=== PATIENT | male | born 1965 ===

== ENCOUNTER 2021-05-08 18:54 | Inpatient (IN) | payer MEDICAID ==
--- NOTE | 2021-05-09 09:23 | Consultation ---
History of Present Illness - Reason for Consult Consult date: 05/09/20 Medical management - History of Present Illness 55-year-old male with history of substance abuse, bipolar disorder and HIV infection who presented to [facility] for suicidal ideation. At time of interview patient denies suicidal ideations. Medicine was consulted for medical evaluation. Past medical history significant for HIV infection. At current time patient does not follow with infectious disease nor does he take any ARVs. Vital signs and labs were reviewed. Review of systems negative. Past History Past Medical History: HIV/AIDS Past Surgical History: No surgical history Social history: other (Meth and marijuana use) Family history: no significant family history Medications and Allergies Allergies Allergy/AdvReac Type Severity Reaction Status Date / Time Penicillins AdvReac Unknown Verified 05/09/21 01:34 Home Medications Medication Instructions Recorded Confirmed Last Taken Type Melatonin [Melatonin 5MG TAB] 5 mg PO QHS PRN 30 Days #30 tablet 05/12/21 Unknown Rx QUEtiapine [SEROquel] 50 mg PO BID 30 Days #60 tablet 05/12/21 Unknown Rx Venlafaxine [Effexor 37.5mg tab] 37.5 mg PO BID 30 Days #60 tablet 05/12/21 Unknown Rx traZODone [Desyrel] 50 mg PO QHS 30 Days #30 tablet 05/12/21 Unknown Rx Review of Systems Constitutional: no weight loss, no weight gain, no fever, no chills, no sweats, no anorexia, no poor appetite Ears, nose, mouth and throat: no nasal congestion, no epistaxis, no bleeding gums, no odynophagia, no headache Cardiovascular: no chest pain, no orthopnea, no rapid/irregular heart beat, no syncope, no shortness of breath, no high blood pressure Respiratory: no cough, no dyspnea on exertion, no wheezing, no pain on inspiration Gastrointestinal: no abdominal pain, no nausea, no vomiting, no diarrhea, no hematemesis, no melena, no hematochezia, no heartburn Genitourinary Male: no dysuria, no urinary frequency, no urinary hesitancy Musculoskeletal: no arm numbness/tingling, no low back pain, no myalgias Integumentary: no deferred Neurological: no head injury, no seizures, no tremors, no memory loss, no change s in smell/taste Psychiatric: insomnia, hopelessness, no anxiety, no suicidal ideation Endocrine: no polyphagia, no polydipsia, no polyuria, no excessive sweating, no weight change, no fatigue Exam - Physical Exam Narrative exam: GENERAL: Emaciated appearing male. In no acute distress. HEENT: Normocephalic. Atraumatic. NECK: Supple. CHEST/LUNGS: CTAB on room air HEART/CARDIOVASCULAR: RRR. No murmur, rubs or gallops appreciated. ABDOMEN: +BS. NT/ND. SKIN: Tattoos noted diffusely. NEURO: No focal motor deficit. Follows all commands. MUSCULOSKELETAL: No joint effusion EXTREMITIES: No cyanosis, cLubbing or edema. PSYCH: Cooperative. Denies current SI/HI - Constitutional Vitals: Temp Pulse Resp BP Pulse Ox 98.4 F 83 16 92/66 98 05/08/21 12:50 05/08/21 12:50 05/08/21 12:50 05/08/21 12:50 05/08/21 12:50 Results - Labs CBC & Chem 7: 05/10/21 23:58 05/10/21 23:58 Assessment and Plan #HIV infection -Patient followed with infectious disease in the past -Currently not on any antiviral medications -Will need close infectious disease follow-up at discharge #Tobacco dependence #Tobacco counseling -Patient reports smoking half a pack per day -Counseled about tobacco cessation. Time +10minutes -will start nicotine patch while inpatient #Substance abuse -Patient reports use of marijuana and methamphetamine #Bipolar disorder #Suicidal ideation -Management per primary
--- NOTE | 2021-05-09 10:20 | History and Physical Report ---
GP History & Physical - History of Present Illness Date of admission: 05/08/21 Date of Examination: 05/09/21 Reason for Admission: Danger to self, Failure of Outpatient Treatment, Severe anxiety/depression History of Present Illness: The patient is a 55y/o male patient who was admitted to [facility] from [facility] with a plant to cut his throat or OD. During my evaluation of the patient he still endorses suicidal thoughts with one of the plans above. He says he is depressed. The patient verbalizes using methamphetamines. He says he lives in a detention. The patient says he has a history of bipolar and takes seroquel and effexor. He says he doesn't take them like he's supposed to. He denies hallucinations at present but states when he came in voices were telling him to hurt himself. PAST PSYCHIATRIC HISTORY: Diagnoses: Bipolar Suicide attempts or Self-harm behavior: Yes Prior psychiatric hospitalizations: Yes Substance Abuse history: Methamphetamines Previous psychiatric medications tried: effexor, seroquel Outpatient treatment: yes PAST MEDICAL HISTORY: unknown Family Psychiatric History: None reported or documented SOCIAL HISTORY Marital Status: Single Living Arrangements: detention Employment Status: Disabled Education: History of Abuse:denies Legal History: Denies REVIEW OF SYSTEMS Constitutional: Negative for weight loss ENT: Negative for stridor Respiratory: Negative for cough or hemoptysis All other systems reviewed and are negative MENTAL STATUS EXAMINATION General Appearance and Behavior: Age appropriate, good hygiene, wearing appropriate clothes. calm, cooperative Cooperation: Cooperative Psychomotor Behavior: Psychomotor normal Mood: Depression Affect and affective range: Congruent with stated mood Thought Process: Illogical Thought Content: SI Speech: Normal Suicidal Ideation: Yes Homicidal Ideation: Denies Hallucinations: Denies Delusions: None elicited Impulse Control: Limited Insight and Judgment: Limited insight and fair judgment Memory: Limited Attention: distracted Orientation: a/o x 3 Assessment (1) Bipolar Disorder (2) Methamphetamine Dependence Treatment Plan Patient admitted for inpatient psychiatric evaluation, medication adjustment and close monitoring The patient's behavior, mood, sleep and appetite will be closely monitored. Patient enrolled in individual and group therapeutic sessions and encouraged to attend. Patient provided with a safe and structured environment. Patient's physical health needs will be addressed by the Hospitalist. Hospitalist Consulted Labs including CBC, CMP, Lipid profile and Hemoglobin A1C levels ordered for baseline reference Social Assessment will be completed and the Missileman will work with patient and family to ensure a suitable and safe disposition Medication adjustment will be made as clinically indicated Restarted home medications Trazodone 5omg po daily Usual Wellness Sabianist/Preservation: - Start Melatonin 5 mg po QHS to promote circadian rhythm The patient agreed on the treatment plan, understood the risk, benefit, alternative treatment, potential consequence of no treatment, and gave informed consent. Estimated days: 7 Post hospital care: primary care provider, psychiatric provider Case staffed with Dr. Reynolds Legal Status: Voluntary Reaction to Hospitalization: Accepting Medications and Allergies Allergies Allergy/AdvReac Type Severity Reaction Status Date / Time Penicillins AdvReac Unknown Verified 05/09/21 01:34 Results - Results Labs/Vitals: Last Vital Signs Temp 98.4 F 05/08/21 12:50 Pulse 83 05/08/21 12:50 Resp 16 05/08/21 12:50 BP 92/66 05/08/21 12:50 Pulse Ox 98 05/08/21 12:50 Physical Examination - Constitutional Vitals: Vital Signs Temp Pulse Resp BP Pulse Ox 98.4 F 83 16 92/66 98 05/08/21 12:50 05/08/21 12:50 05/08/21 12:50 05/08/21 12:50 05/08/21 12:50 Temperature -Last 24 Hours Temperature 98.4 F Mental Status Exam - Vital signs Last Vital Signs Temp 98.4 F 05/08/21 12:50 Pulse 83 05/08/21 12:50 Resp 16 05/08/21 12:50 BP 92/66 05/08/21 12:50 Pulse Ox 98 05/08/21 12:50 Physician Certification - Certification Statement Physician Certification Statement: This is an acknowledgement statement that NYLA RAMIREZ is a 55 year old M who requires inpatient psychiatric admission for treatment which could reasonably be expected to improve the patient's condition for Estimated period of time patient will need to remain in the hospital: [ ] Plan for post-hospital care: [ ]
[2021-05-09] MEDS ORDERED: MELATONIN 5 MG TAB PO PRN (10:25)
[2021-05-09] MEDS: QUEtiapine 25 MG TAB PO SCH ×2 (14:39→21:22)
[2021-05-09] MEDS: VENLAFAXINE 25 MG TAB PO SCH (14:39)
[2021-05-09] MEDS: traZODone 50 MG TAB PO SCH (21:22)
[2021-05-10] MEDS: VENLAFAXINE 25 MG TAB PO SCH (09:12)
[2021-05-10] MEDS: QUEtiapine 25 MG TAB PO SCH ×2 (09:12→21:26)
--- NOTE | 2021-05-10 10:13 | Progress Note ---
Subjective Date of service: 05/10/21 Principal diagnosis: Bipolar Disorder Subjective Comment: The patient was seen today. He looks depressed and withdraws, but states he's doing "okay." He denies SI/HI. He also denies hallucinations, but he stated to staff that hallucinations come and go. Staff also documents that the patient has to be encouraged to eat. REVIEW OF SYSTEMS Constitutional: Negative for weight loss ENT: Negative for stridor Respiratory: Negative for cough or hemoptysis All other systems reviewed and are negative MENTAL STATUS EXAMINATION General Appearance and Behavior: Age appropriate, good hygiene, wearing appropriate clothes. calm, cooperative Cooperation: Cooperative Psychomotor Behavior: Psychomotor normal Mood: Depression Affect and affective range: Congruent with stated mood Thought Process: Illogical Thought Content: SI Speech: Normal Suicidal Ideation: Passive Homicidal Ideation: Denies Hallucinations: "on and off" Delusions: None elicited Impulse Control: Limited Insight and Judgment: Limited insight and fair judgment Memory: Limited Attention: distracted Orientation: a/o x 3 Assessment (1) Bipolar Disorder (2) Methamphetamine Dependence Treatment Plan Patient admitted for inpatient psychiatric evaluation, medication adjustment and close monitoring The patient's behavior, mood, sleep and appetite will be closely monitored. Patient enrolled in individual and group therapeutic sessions and encouraged to attend. Patient provided with a safe and structured environment. Patient's physical health needs will be addressed by the Hospitalist. Hospitalist Consulted Labs including CBC, CMP, Lipid profile and Hemoglobin A1C levels ordered for baseline reference Social Assessment will be completed and the Vamp Maker will work with patient and family to ensure a suitable and safe disposition Medication adjustment will be made as clinically indicated Increase Effexor 37.5mg po BID Usual Wellness Samaritan/Preservation: - Start Melatonin 5 mg po QHS to promote circadian rhythm The patient agreed on the treatment plan, understood the risk, benefit, alternative treatment, potential consequence of no treatment, and gave informed consent. Estimated days: 7 Post hospital care: primary care provider, psychiatric provider Case staffed with Dr. Reynolds Medications and Allergies Allergies Allergy/AdvReac Type Severity Reaction Status Date / Time Penicillins AdvReac Unknown Verified 05/09/21 01:34 Active Meds: Active Medications Melatonin (Melatonin 5 Mg Tab) 5 mg PO QHS PRN PRN Reason: Sleep Quetiapine Fumarate (Quetiapine 25 Mg Tab) 50 mg PO BID [facility] Last Admin: 05/10/21 09:12 Dose: 50 mg Trazodone HCl (Trazodone 50 Mg Tab) 50 mg PO QHS [facility] Last Admin: 05/09/21 21:22 Dose: 50 mg Venlafaxine HCl (Venlafaxine 25 Mg Tab) 25 mg PO QDAY [facility] Last Admin: 05/10/21 09:12 Dose: 25 mg Results - Results Labs/Vitals: Last Vital Signs Temp 98.7 F 05/09/21 22:00 Pulse 78 05/09/21 22:00 Resp 17 05/09/21 22:00 BP 117/74 05/09/21 22:00 Pulse Ox 97 05/09/21 22:00
[2021-05-10] MEDS: traZODone 50 MG TAB PO SCH (21:26)
[2021-05-10] MEDS: VENLAFAXINE 37.5 MG TAB PO SCH (21:26)
[2021-05-11 00:56] LABS: Basophils % (Auto) 0.3 % (0.0-1.8); Eosinophils # (Auto) 0.2 K/mm3 (0.0-0.4); Eosinophils % (Auto) 4.8 % (0.0-4.3); Hematocrit 41.3 % (35.5-45.6); Hemoglobin 13.1 gm/dl (11.8-15.2); Lymphocytes # (Auto) 1.9 K/mm3 (1.2-5.4); Lymphocytes % (Auto) 42.7 % (13.4-35.0); Mean Corpuscular HGB Conc 32 % (32-34); Mean Corpuscular Volume 88 fl (84-94); Monocytes # (Auto) 0.4 K/mm3 (0.0-0.8); Platelet Count 192 K/mm3 (140-440); Red Blood Count 4.68 M/mm3 (3.65-5.03); Red Cell Distribution Width 13.8 % (13.2-15.2)
[2021-05-11 01:25] LABS: Alanine Aminotransferase 8 units/L (7-56); Albumin 3.5 g/dL (3.9-5); BUN/Creatinine Ratio 23; Blood Urea Nitrogen 23 mg/dL (9-20); Calcium 8.7 mg/dL (8.4-10.2); Hemolysis Index 50
[2021-05-11 02:25] LABS: Chol/HDL Ratio 3.17 %; HDL Cholesterol 34 mg/dL (40-59); LDL Cholesterol,Direct 58 mg/dL (50-130)
--- NOTE | 2021-05-11 09:02 | Progress Note ---
Subjective Date of service: 05/11/21 Principal diagnosis: Bipolar Disorder Subjective Comment: The patient was seen today. He says he's doing alright. He denies SI.HI or hallucinations of any kind. He appears down. REVIEW OF SYSTEMS Constitutional: Negative for weight loss ENT: Negative for stridor Respiratory: Negative for cough or hemoptysis All other systems reviewed and are negative MENTAL STATUS EXAMINATION General Appearance and Behavior: Age appropriate, good hygiene, wearing appropriate clothes. calm, cooperative Cooperation: Cooperative Psychomotor Behavior: Psychomotor normal Mood: Depression Affect and affective range: Congruent with stated mood Thought Process: Illogical Thought Content: SI Speech: Normal Suicidal Ideation: Passive Homicidal Ideation: Denies Hallucinations: "on and off" Delusions: None elicited Impulse Control: Limited Insight and Judgment: Limited insight and fair judgment Memory: Limited Attention: distracted Orientation: a/o x 3 Assessment (1) Bipolar Disorder (2) Methamphetamine Dependence Treatment Plan Patient admitted for inpatient psychiatric evaluation, medication adjustment and close monitoring The patient's behavior, mood, sleep and appetite will be closely monitored. Patient enrolled in individual and group therapeutic sessions and encouraged to attend. Patient provided with a safe and structured environment. Patient's physical health needs will be addressed by the Hospitalist. Hospitalist Consulted Labs including CBC, CMP, Lipid profile and Hemoglobin A1C levels ordered for baseline reference Social Assessment will be completed and the General Ledger Accountant will work with patient and family to ensure a suitable and safe disposition Medication adjustment will be made as clinically indicated Increase Effexor 37.5mg po BID yesterday No changes today Usual Wellness Lutheran/Preservation: - Start Melatonin 5 mg po QHS to promote circadian rhythm The patient agreed on the treatment plan, understood the risk, benefit, alternative treatment, potential consequence of no treatment, and gave informed consent. Estimated days: 7 Post hospital care: primary care provider, psychiatric provider Case staffed with Dr. Reynolds Medications and Allergies Allergies Allergy/AdvReac Type Severity Reaction Status Date / Time Penicillins AdvReac Unknown Verified 05/09/21 01:34 Active Meds: Active Medications Melatonin (Melatonin 5 Mg Tab) 5 mg PO QHS PRN PRN Reason: Sleep Quetiapine Fumarate (Quetiapine 25 Mg Tab) 50 mg PO BID [facility] Last Admin: 05/10/21 21:26 Dose: 50 mg Trazodone HCl (Trazodone 50 Mg Tab) 50 mg PO QHS [facility] Last Admin: 05/10/21 21:26 Dose: 50 mg Venlafaxine HCl (Venlafaxine 37.5 Mg Tab) 37.5 mg PO BID [facility] Last Admin: 05/10/21 21: Dose: 37.5 mg Results - Results Labs/Vitals: Laboratory Last Values WBC 4.4 K/mm3 (4.5-11.0) L 05/10/21 23:58 RBC 4.68 M/mm3 (3.65-5.03) 05/10/21 23:58 Hgb 13.1 gm/dl (11.8-15.2) 05/10/21 23:58 Hct 41.3 % (35.5-45.6) 05/10/21 23:58 MCV 88 fl (84-94) 05/10/21 23:58 MCH 28 pg (28-32) 05/10/21 23:58 MCHC 32 % (32-34) 05/10/21 23:58 RDW 13.8 % (13.2-15.2) 05/10/21 23:58 Plt Count 192 K/mm3 (140-440) 05/10/21 23:58 Lymph % (Auto) 42.7 % (13.4-35.0) H 05/10/21 23:58 [place] % (Auto) 9.0 % (0.0-7.3) H 05/10/21 23:58 Eos % (Auto) 4.8 % (0.0-4.3) H 05/10/21 23:58 Baso % (Auto) 0.3 % (0.0-1.8) 05/10/21 23:58 Lymph # (Auto) 1.9 K/mm3 (1.2-5.4) 05/10/21 23:58 [place] # (Auto) 0.4 K/mm3 (0.0-0.8) 05/10/21 23:58 Eos # (Auto) 0.2 K/mm3 (0.0-0.4) 05/10/21 23:58 Baso # (Auto) 0.0 K/mm3 (0.0-0.1) 05/10/21 23:58 Seg Neutrophils % 43.2 % (40.0-70.0) 05/10/21 23:58 Seg Neutrophils # 1.9 K/mm3 (1.8-7.7) 05/10/21 23:58 Sodium 139 mmol/L (137-145) 05/10/21 23:58 Potassium 4.7 mmol/L (3.6-5.0) 05/10/21 23:58 Chloride 104.4 mmol/L (98-107) 05/10/21 23:58 Carbon Dioxide 23 mmol/L (22-30) 05/10/21 23:58 Anion Gap 16 mmol/L 05/10/21 23:58 BUN 23 mg/dL (9-20) H 05/10/21 23:58 Creatinine 1.0 mg/dL (0.8-1.3) 05/10/21 23:58 Estimated GFR > 60 ml/min 05/10/21 23:58 BUN/Creatinine Ratio 23 % 05/10/21 23:58 Glucose 105 mg/dL (75-100) H 05/10/21 23:58 Hemoglobin A1c 6.0 % (4-6) 05/10/21 23:58 Calcium 8.7 mg/dL (8.4-10.2) 05/10/21 23:58 Total Bilirubin 0.20 mg/dL (0.1-1.2) 05/10/21 23:58 AST 15 units/L (5-40) 05/10/21 23:58 ALT 8 units/L (7-56) 05/10/21 23:58 Alkaline Phosphatase 73 units/L (35-129) 05/10/21 23:58 Total Protein 7.1 g/dL (6.3-8.2) 05/10/21 23:58 Albumin 3.5 g/dL (3.9-5) L 05/10/21 23:58 Albumin/Globulin Ratio 1.0 % 05/10/21 23:58 Triglycerides 86 mg/dL (2-149) 05/10/21 23:58 Cholesterol 108 mg/dL (50-199) 05/10/21 23:58 LDL Cholesterol Direct 58 mg/dL (50-130) 05/10/21 23:58 HDL Cholesterol 34 mg/dL (40-59) L 05/10/21 23:58 Cholesterol/HDL Ratio 3.17 % 05/10/21 23:58 TSH 0.200 mlU/mL (0.270-4.200) L 05/10/21 23:58 Last Vital Signs Temp 99.4 F 05/10/21 22:00 Pulse 83 05/10/21 22:00 Resp 18 05/10/21 22:00 BP 136/84 05/10/21 22:00 Pulse Ox 92 05/10/21 22:00
[2021-05-11] MEDS: QUEtiapine 25 MG TAB PO SCH ×2 (09:37→21:30)
[2021-05-11] MEDS: VENLAFAXINE 37.5 MG TAB PO SCH ×2 (09:37→21:30)
[2021-05-11] MEDS: traZODone 50 MG TAB PO SCH (21:30)
--- NOTE | 2021-05-12 10:11 | Discharge Summary ---
Providers - Providers Date of Admission: 05/09/21 03:42 Date of discharge: 05/12/21 Attending physician: JONN CUEVAS MD Primary care physician: FORMING MACHINE ADJUSTER Hospitalization Reason for admission: suicidal ideation Admitting Diagnosis: F31.32 - BIPOLAR DISORDER, CURRENT EPISODE DEPRESSED, MODERATE Hospital course: The patient was provided inpatient psychiatric treatment with safe and supportive environment, group/individual therapy, psychiatric medication, medication adjustment, adverse effect monitor, medical evaluation, medical treatment, social service assessment, social support meeting, placement assessment and psycho-education. The patients mood, cognition, behavior, motivation, compliance to treatment and appreciation on family/social support are improved and stabilized. At the time of discharge, the patient had no suicidal ideas, no homicidal ideas, no aggressive thoughts, no endangering behavior and no debilitating adverse effects. The patient agreed on the treatment plan, understood the risk, benefit, alternative treatment, potential consequence of no treatment, and gave informed consent. Progress Note: 05/10/20: The patient was seen today. He looks depressed and withdraws, but states he's doing "okay." He denies SI/HI. He also denies hallucinations, but he stated to staff that hallucinations come and go. Staff also documents that the patient has to be encouraged to eat. 05/11/20: The patient was seen today. He says he's doing alright. He denies SI.HI or hallucinations of any kind. He appears down. Disposition: 30 STILL A PATIENT Allergies/Adverse Reactions: Allergies Penicillins Adverse Reaction (Verified 05/09/21 01:34) Unknown Vital Signs: Last Vital Signs Temp 98.9 F 05/11/21 19:58 Pulse 81 05/11/21 19:58 Resp 16 05/11/21 19:58 BP 130/83 05/11/21 19:58 Pulse Ox 95 05/11/21 19:58 Last Lab: Laboratory Last Values WBC 4.4 K/mm3 (4.5-11.0) L 05/10/21 23:58 RBC 4.68 M/mm3 (3.65-5.03) 05/10/21 23:58 Hgb 13.1 gm/dl (11.8-15.2) 05/10/21 23:58 Hct 41.3 % (35.5-45.6) 05/10/21 23:58 MCV 88 fl (84-94) 05/10/21 23:58 MCH 28 pg (28-32) 05/10/21 23:58 MCHC 32 % (32-34) 05/10/21 23:58 RDW 13.8 % (13.2-15.2) 05/10/21 23:58 Plt Count 192 K/mm3 (140-440) 05/10/21 23:58 Lymph % (Auto) 42.7 % (13.4-35.0) H 05/10/21 23:58 [place] % (Auto) 9.0 % (0.0-7.3) H 05/10/21 23:58 Eos % (Auto) 4.8 % (0.0-4.3) H 05/10/21 23:58 Baso % (Auto) 0.3 % (0.0-1.8) 05/10/21 23:58 Lymph # (Auto) 1.9 K/mm3 (1.2-5.4) 05/10/21 23:58 [place] # (Auto) 0.4 K/mm3 (0.0-0.8) 05/10/21 23:58 Eos # (Auto) 0.2 K/mm3 (0.0-0.4) 05/10/21 23:58 Baso # (Auto) 0.0 K/mm3 (0.0-0.1) 05/10/21 23:58 Seg Neutrophils % 43.2 % (40.0-70.0) 05/10/21 23:58 Seg Neutrophils # 1.9 K/mm3 (1.8-7.7) 05/10/21 23:58 Sodium 139 mmol/L (137-145) 05/10/21 23:58 Potassium 4.7 mmol/L (3.6-5.0) 05/10/21 23:58 Chloride 104.4 mmol/L (98-107) 05/10/21 23:58 Carbon Dioxide 23 mmol/L (22-30) 05/10/21 23:58 Anion Gap 16 mmol/L 05/10/21 23:58 BUN 23 mg/dL (9-20) H 05/10/21 23:58 Creatinine 1.0 mg/dL (0.8-1.3) 05/10/21 23:58 Estimated GFR > 60 ml/min 05/10/21 23:58 BUN/Creatinine Ratio 23 % 05/10/21 23:58 Glucose 105 mg/dL (75-100) H 05/10/21 23:58 Hemoglobin A1c 6.0 % (4-6) 05/10/21 23:58 Calcium 8.7 mg/dL (8.4-10.2) 05/10/21 23:58 Total Bilirubin 0.20 mg/dL (0.1-1.2) 05/10/21 23:58 AST 15 units/L (5-40) 05/10/21 23:58 ALT 8 units/L (7-56) 05/10/21 23:58 Alkaline Phosphatase 73 units/L (35-129) 05/10/21 23:58 Total Protein 7.1 g/dL (6.3-8.2) 05/10/21 23:58 Albumin 3.5 g/dL (3.9-5) L 05/10/21 23:58 Albumin/Globulin Ratio 1.0 % 05/10/21 23:58 Triglycerides 86 mg/dL (2-149) 05/10/21 23:58 Cholesterol 108 mg/dL (50-199) 05/10/21 23:58 LDL Cholesterol Direct 58 mg/dL (50-130) 05/10/21 23:58 HDL Cholesterol 34 mg/dL (40-59) L 05/10/21 23:58 Cholesterol/HDL Ratio 3.17 % 05/10/21 23:58 TSH 0.200 mlU/mL (0.270-4.200) L 05/10/21 23:58 Core Measure Documentation - Palliative Care Palliative Care/ Comfort Measures: Not Applicable - Core Measures Any of the following diagnoses?: none - VTE Discharge Requirements Deep Vein Thrombosis/Pulmonary Embolism Present on Admission: No Exam - Constitutional Vitals: Temp Pulse Resp BP Pulse Ox 98.9 F 81 16 130/83 95 05/11/21 19:58 05/11/21 19:58 05/11/21 19:58 05/11/21 19:58 05/11/21 19:58 Plan Activity: advance as tolerated Weight Bearing Status: Weight Bear as Tolerated Diet: regular Care Plan Goals: Maintain good and stable mental health. Plan of Treatment: The patient should be compliant with medications, not to use drugs and not to drink alcohol.The patient understands that if suicidal ideas, homicidal ideas, or any endangering thoughts/behavior arise, they should immediately seek for emergent assistance including but not limited to crisis hot line and emergency room. Follow up with outpatient Psychiatrist and PCP within 7 - 14 days of discharge. Follow up with: PRIMARY CARE,MD [Primary Care Provider] - 7 Days Prescriptions: traZODone [Desyrel] 50 mg PO QHS 30 Days #30 tablet Melatonin [Melatonin 5MG TAB] 5 mg PO QHS PRN 30 Days #30 tablet PRN Reason: Sleep Venlafaxine [Effexor 37.5mg tab] 37.5 mg PO BID 30 Days #60 tablet QUEtiapine [SEROquel] 50 mg PO BID 30 Days #60 tablet
[2021-05-12 11:33] VITALS: BP 102/70
[2021-05-12] MEDS: VENLAFAXINE 37.5 MG TAB PO SCH (11:33)
[2021-05-12] MEDS: QUEtiapine 25 MG TAB PO SCH (11:33)
== END 2021-05-12 16:15 | disposition home or self-care (01) | DRG 885 ==
LOC: UNDOADMIN 18:54 → 3A 18:54 → 5A 05-09 03:42
PROVIDERS: ADMIT Psychiatry & Neurology Psychiatry; ATTEND Psychiatry & Neurology Psychiatry
DX: F31.9 Bipolar disorder, unspecified (principal); F15.20 Other stimulant dependence, uncomplicated; Z88.0 Allergy status to penicillin; B20 Human immunodeficiency virus [HIV] disease; R45.851 Suicidal ideations; F17.200 Nicotine dependence, unspecified, uncomplicated; Z71.6 Tobacco abuse counseling
CPT/HCPCS: 36415; 80053; 80061; 83036; 84443; 85025; G0378

== ENCOUNTER 2021-12-26 11:27 | Emergency (ER) | payer MEDICAID ==
--- NOTE | 2021-12-26 13:01 | Consultation ---
History of Present Illness - Reason for Consult Consult date: 12/26/21 Reason for consult: mental health evaluation - History of Present Psychiatric Illness Patient is a 56 year old male with history of bipolar and schizophrenia who was transported from [facility] in [facility]. The patient was seen today. He reports he was having suicidal thoughts about 1 week ago. He denies suicidal and homicidal thoughts at this time. He denies AVH. PAST PSYCHIATRIC HISTORY Diagnoses: Bipolar, schizophrenia Suicide attempts or Self-harm behavior: Yes- cutting 20-25 years ago Prior psychiatric hospitalizations: Yes Substance Abuse history: meth, marijuana Previous psychiatric medications tried: Seroquel, effexor Outpatient treatment: Unknown PAST MEDICAL HISTORY: None reported Family Psychiatric History: None reported or documented SOCIAL HISTORY Living arrangement: homeless Marital status: Single Employment status: unemployed Education: 8th grade Abuse: None REVIEW OF SYSTEMS Constitutional: Negative for weight loss ENT: Negative for stridor Respiratory: Negative for cough or hemoptysis All other systems reviewed and are negative MENTAL STATUS General Appearance and Behavior: cooperative Cooperation: Cooperative Mood: depressed, easily irritated Affect and affective range: Congruent with stated mood Thought Process: goal directed Thought Content: Reality-oriented Speech: Normal volume and Regular rate and rhythm Suicidal Ideation: Denies Homicidal Ideation: Denies Impulse Control: limited Insight and Judgment: Limited Memory: Limited Attention: attentive Orientation: a/o Assessment: Major Depressive Disorder Treatment Plan Continue home medicines: Seroquel 100 mg po qhs, Effexor 75 mg po qd PSYCHOTHERAPY: Supportive psychotherapy provided MEDICAL: Per primary team DELIRIUM PRECAUTIONS: Please re-orient patient frequently, keep lights on during the day, and minimize benzodiazepines and opiates as these medications could worsen patient's confusion. MEDICAL OFFICER: Defer to primary team DISPOSITION: Do not recommend acute psychiatric inpatient treatment. [employer] will provide patient with psychiatric outpatient resources. FOLLOW-UP: Will sign off. Thanks Case staffed with Dr. Reynolds Medications and Allergies Allergies Allergy/AdvReac Type Severity Reaction Status Date / Time Penicillins AdvReac Unknown Verified 12/26/21 11:49 Home Medications Medication Instructions Recorded Confirmed Last Taken Type Melatonin [Melatonin 5MG TAB] 5 mg PO QHS PRN 30 Days #30 tablet 05/12/21 Unknown Rx QUEtiapine [SEROquel] 50 mg PO BID 30 Days #60 tablet 05/12/21 Unknown Rx Venlafaxine [Effexor 37.5mg tab] 37.5 mg PO BID 30 Days #60 tablet 05/12/21 Unknown Rx traZODone [Desyrel] 50 mg PO QHS 30 Days #30 tablet 05/12/21 Unknown Rx Quetiapine Fumarate [SEROquel] 50 mg PO QHS 30 Days #30 tab 12/26/21 Unknown Rx Venlafaxine [Effexor 37.5mg tab] 37.5 mg PO BID 30 Days #60 tab 12/26/21 Unknown Rx Results All other labs normal.
--- NOTE | 2021-12-26 16:13 | Emergency Department Report ---
ED General Adult HPI - General Chief complaint: Medical Clearance Stated complaint: im fine Time Seen by Provider: 12/26/21 16:06 Source: patient, RN notes reviewed Mode of arrival: Ambulatory Limitations: No Limitations - History of Present Illness Initial comments: The patient was evaluated in the emergency department for symptoms described in the history of present illness. He/she was evaluated in the context of the global COVID-19 pandemic, which necessitated consideration that the patient might be at risk for infection with the virus that causes COVID-19. Institutional protocols and algorithms that pertain to the evaluation of patients at risk for COVID-19 are in a state of rapid change based on information released by regulatory bodies including the CDC and federal and state organizations. These policies and algorithms were followed during the patient's care in the emergency department. Please note that these policies, procedures and recommendations changed on a rapid basis. This is a 56-year-old gentleman. He tells me he has no acute complaints. He denies all physical pain. He denies physical complaints. He also states that he is not homicidal or suicidal. He is accompanied by paperwork, which indicates that he was recently at [facility] in [facility]. At that time, he had essentially unremarkable laboratory studies. No additional complaints at this time. - Related Data Previous Rx's Medication Instructions Recorded Last Taken Type Melatonin [Melatonin 5MG TAB] 5 mg PO QHS PRN 30 Days #30 tablet 05/12/21 Unknown Rx QUEtiapine [SEROquel] 50 mg PO BID 30 Days #60 tablet 05/12/21 Unknown Rx Venlafaxine [Effexor 37.5mg tab] 37.5 mg PO BID 30 Days #60 tablet 05/12/21 Unknown Rx traZODone [Desyrel] 50 mg PO QHS 30 Days #30 tablet 05/12/21 Unknown Rx Quetiapine Fumarate [SEROquel] 50 mg PO QHS 30 Days #30 tab 12/26/21 Unknown Rx Venlafaxine [Effexor 37.5mg tab] 37.5 mg PO BID 30 Days #60 tab 12/26/21 Unknown Rx Allergies Allergy/AdvReac Type Severity Reaction Status Date / Time Penicillins AdvReac Unknown Verified 12/26/21 11:49 ED Review of Systems ROS: Stated complaint: PSYCH Other details as noted in HPI Comment: All other systems reviewed and negative ED Past Medical Hx - Past Medical History Hx Renal Disease: No Hx Arthritis: No Hx Seizures: No Hx Dementia: No - Surgical History Hx Cholecystectomy: No Hx Appendectomy: No - Social History Smoking Status: Current Every Day Smoker - Medications Home Medications: Home Medications Medication Instructions Recorded Confirmed Last Taken Type Melatonin [Melatonin 5MG TAB] 5 mg PO QHS PRN 30 Days #30 tablet 05/12/21 Unknown Rx QUEtiapine [SEROquel] 50 mg PO BID 30 Days #60 tablet 05/12/21 Unknown Rx Venlafaxine [Effexor 37.5mg tab] 37.5 mg PO BID 30 Days #60 tablet 05/12/21 Unknown Rx traZODone [Desyrel] 50 mg PO QHS 30 Days #30 tablet 05/12/21 Unknown Rx Quetiapine Fumarate [SEROquel] 50 mg PO QHS 30 Days #30 tab 12/26/21 Unknown Rx Venlafaxine [Effexor 37.5mg tab] 37.5 mg PO BID 30 Days #60 tab 12/26/21 Unknown Rx ED Physical Exam - General Limitations: No Limitations General appearance: alert, in no apparent distress - Head Head exam: Present: atraumatic, normocephalic - Eye Eye exam: Present: normal appearance, EOMI. Absent: nystagmus - ENT ENT exam: Present: normal exam, normal orophraynx, mucous membranes moist, normal external ear exam - Neck Neck exam: Present: normal inspection, full ROM. Absent: tenderness, meningismus - Respiratory Respiratory exam: Present: normal lung sounds bilaterally. Absent: respiratory distress, wheezes, rales, rhonchi, stridor, decreased breath sounds - Cardiovascular Cardiovascular Exam: Present: regular rate, normal rhythm, normal heart sounds. Absent: bradycardia, tachycardia, irregular rhythm, systolic murmur, diastolic murmur, rubs, gallop - GI/Abdominal GI/Abdominal exam: Present: soft. Absent: distended, tenderness, guarding, rebound, rigid, pulsatile mass - Rectal Rectal exam: Present: deferred - Extremities Exam Extremities exam: Present: normal inspection, full ROM, other (2+ pulses noted in the bilateral upper and lower extremities. There is no palpable cord. negative Homans sign. Muscular compartments are soft. The pelvis is stable.). Absent: pedal edema, calf tenderness - Back Exam Back exam: Present: normal inspection, full ROM. Absent: tenderness, CVA tenderness (R), CVA tenderness (L), paraspinal tenderness, vertebral tenderness - Neurological Exam Neurological exam: Present: alert, oriented X3, normal gait, other (No facial droop. Tongue midline. Extraocular movements intact bilaterally. Facial sensation intact to light touch in V1, V2, V3 distribution bilaterally. 5 and a 5 strength in 4 extremities. Sensation intact to light touch in 4 extremities.). Absent: motor sensory deficit - Psychiatric Psychiatric exam: Present: flat affect. Absent: homicidal ideation, suicidal ideation - Skin Skin exam: Present: warm, dry, intact, normal color. Absent: rash ED Course Vital Signs 12/26/21 16:15 Temperature 98.6 F Pulse Rate 77 Respiratory 20 Rate Blood Pressure 132/78 [Left] O2 Sat by Pulse 99 Oximetry ED Medical Decision Making - Lab Data Vital Signs 12/26/21 16:15 Temperature 98.6 F Pulse Rate 77 Respiratory 20 Rate Blood Pressure 132/78 [Left] O2 Sat by Pulse 99 Oximetry - Medical Decision Making Differential diagnosis, including but not limited to: Encounter for medical screening examination, encounter for behavioral health screening examination Assessment and plan: 56-year-old gentleman, who has no acute complaints. He is clinically sober with a GCS of 15. He is pleasant and cooperative. He is not acutely psychotic. He does not appear to have an emergent medical condition present at this time. He recently had laboratory studies performed at another facility, which are available for my review, and they do not appear to be significant for any emergent findings. This patient does not meet criteria for 1013 hold or involuntary confinement. He may be homeless. Placing this patient on a 1013 may reinforce maladaptive coping mechanisms and behaviors, such as seeking group home and food in the emergency department, when faced with challenging and difficult social situations. Nevertheless, he was seen by our psychiatric colleagues, who have also advised and recommended that he does not meet criteria for 1013 hold, or involuntary confinement. Critical care attestation.: If time is entered above; I have spent that time in minutes in the direct care of this critically ill patient, excluding procedure time. ED Disposition Clinical Impression: Homelessness, Encounter for behavioral health screening Disposition: HOME / SELF CARE / HOMELESS Is pt being admited?: No Does the pt Need Aspirin: No Condition: Good Additional Instructions: Please follow-up with an outpatient mental health specialist within the next wee k. Avoid consumption of alcohol, tobacco, smoke products and recreational drugs. Please return to the emergency room right away with new pain, worsened pain, migration of pain, projectile vomiting, change in mental status, confusion, inability tolerate liquid feeds, new, worsened or different symptoms not present on the initial emergency room evaluation professional and Agency Contacts To help [facility] (12/11) [place] Crisis Line: Suicide Prevention Line: Crisis Text Line: Text ``START to [phone] Emergency: 911 Outpatient [facility] Behavioral Health Resources: DEKALB: [facility] [address], [place] [address] [facility] [place] [address] Saturday thru Saturday - 8am - 5pm Call to schedule an assessment for mental health and substance abuse programs [facility] Address: [address] [place] [address] Saturday thru Saturday- 7am-2pm [facility] Address: [address] [place] [address] Saturday thru Saturday: 8:30AM-5PM Professional and Agency Contacts To help [facility](12/11) [place] Crisis Line: Suicide Prevention Line: Crisis Text Line: Text START to 841995 Emergency: 911 Outpatient [facility] Behavioral Health Resources: DEKALB: [facility] [address] [place], [place] [address] [address] [facility] [address] [address] Saturday thru Saturday - 8am - 5pm MACK: [facility] Address: [address], [place] [address] [facility] Address: [address] [place], [place], [place] Saturday thru Saturday- 7am-2pm [facility] Address: [address], [place] [address] Saturday thru Saturday: 8:30AM-5PM Prescriptions: Quetiapine Fumarate [SEROquel] 50 mg PO QHS 30 Days #30 tab Venlafaxine [Effexor 37.5mg tab] 37.5 mg PO BID 30 Days #60 tab [facility] - [facility]-5 Days [facility]Outside] - 3-5 Days
[2021-12-26] MEDS ORDERED: QUEtiapine 25 MG TAB PO SCH (22:00)
[2021-12-26] MEDS ORDERED: VENLAFAXINE 37.5 MG TAB PO SCH (22:00)
[2021-12-26] MEDS ORDERED: MELATONIN 5 MG TAB PO PRN (22:00)
[2021-12-26] MEDS ORDERED: traZODone 50 MG TAB PO SCH (22:00)
[2021-12-26 23:42] VITALS: BP 132/72
== END 2021-12-26 23:42 | disposition home or self-care (01) ==
LOC: ED 11:27
DX: Z13.30 Encounter for screening examination for mental health and behavioral disorders, unspecified (principal); Z59.00 Homelessness unspecified
CPT/HCPCS: 99282